=== PATIENT | female | born 1995 | race Caucasian/White ===

== ENCOUNTER 2016-10-10 16:07 | Emergency (ER) | payer OTHER ==
[~2016-10-10] VITALS: Ht 157.5 cm; Wt 52.3 kg
[2016-10-10 16:43] VITALS: TEMP 36.9; Ht 157.5 cm; Wt 52.3 kg
[2016-10-10] MEDS ORDERED: WLLXL/300 PO (16:50)
--- NOTE | 2016-10-10 17:17 | EMERGENCY ROOM VISIT NOTE ---
ED Visit Note First contact with patient: 17:00 CHIEF COMPLAINT: Head injury HISTORY OF PRESENT ILLNESS: This 21-year-old female patient presented to the emergency department ambulatory after receiving a head injury yesterday when she slipped on the ice and fell onto her left side. She states that she injured her right thumb. She states that she struck the left side of her head. There was no brief loss of consciousness or vomiting. No difficulty with speech. The headache has been mild. The patient complains of no neck pain. No loss of appetite or unusual behavior since the injury. The patient has taken nothing for the pain. The patient rates the pain as mild 5/10 and mild. The patient denies any changes in their vision or hearing. The patient denies bowel or bladder dysfunction. The patient denies abdominal pain. The patient reports pain in the right thumb at the base of the thumb. She reports pain with movement. REVIEW OF SYSTEMS: A 6 system review of systems was completed with positives and pertinent negatives listed in the HPI. ALLERGIES: No known allergies MEDICATIONS: Patient denies PMH: Patient denies SOCIAL HISTORY: The patient is a student PHYSICAL EXAM: Vital Signs: Reviewed Nurse's notes, vital signs stable. GENERAL : This is a 21-year-old female, in no acute distress, well-developed, well- nourished. NEURO: The patient is alert, oriented to person place and time, and coherent. Normal mini mental status exam. HEAD: Normocephalic and atraumatic. EYES: Pupils are equal round and reactive to light and accommodation. EOMs are full and optic discs and fundi are normal. There is no swelling or discoloration of the tissue surrounding the eyes. EARS: External auditory canals clear without blood. NOSE: Patent without tenderness. No septal hematoma. FACE: No facial tenderness. NECK: Supple. There is no cervical spine tenderness. The patient does not have tenderness with movement of the neck. MUSCULOSKELETAL: There is tenderness to palpation to the base of the right thumb at the first MCP. There is no obvious deformity. There is mild edema. ED COURSE: I examined the patient. The patient slipped on the ice yesterday and fell, striking the left side of her head. She has a mild headache but no other symptoms related to the head injury. She does not have any nausea, vomiting, blurry vision, fatigue, trouble focusing. I do not suspect concussion , intracranial bleeding or skull fracture. I discussed the risks, benefits and alternatives of CT imaging with the patient. The risks of radiation from CT imaging may outweigh the benefits. The patient is in agreement with this and elects to defer a CT scan at this time. The patient also injured her right hand. An x-ray was obtained and was negative for obvious fracture. She could have a ligamentous injury. She was placed in a removable thumb spica splint by the emergency department nurse and the position was satisfactory. Neurovascular status was intact. She was given the information for the concussion clinic. She should also contact orthopedics for a follow-up appointment for further evaluation and management. She should return with any worsening symptoms. The patient was discharged home in good condition ambulatory. GCS 15 DISCHARGE INSTRUCTIONS: Wear the splint over the next 5-7 days. Contact orthopedics to schedule a follow-up appointment for further evaluation and management of the thumb as it is not improving. Contact the concussion clinic at [facility] ([phone]) to schedule a follow-up appointment for further evaluation and management. Their office is located at [address] [place] [address]. [address] No gym or athletics for one week after symptoms resolve ] RIGHT HAND 3 VIEWS HISTORY: fall, right hand pain Right COMPARISON: None. FINDINGS: There is no fracture or dislocation. Soft tissues are unremarkable. No radiopaque foreign bodies. IMPRESSION: No fractures. Problem List Medical Problems: (1) Asthma Status: Chronic Surgical Problems: (1) [place] teeth removed Status: Resolved Current/Historical Medications Scheduled Control Pills ( Control Pills), 1 TAB PO DAILY Bupropion HCl (Bupropion HCl Xl), 300 MG PO DAILY Cetirizine (Zyrtec), 10 MG PO DAILY Fluticasone Propionate (Nasal) (Flonase Allergy Relief), 2 SPRAYS ELVIS DAILY Allergies Coded Allergies: No Known Allergies (Unverified , 02/01/16) Vital Signs Date Time Temp Pulse Resp B/P Pulse Ox O2 Delivery O2 Flow Rate FiO2 10/10/16 18:13 75 18 107/74 97 Room Air 10/10/16 16:43 36.9 95 20 110/73 95 Room Air Departure Information Impression Primary Impression: Closed head injury Additional Impression: Thumb sprain Dispostion Home / Self-Care Condition GOOD Referrals No Doctor, Assigned (PCP) Gaurav Mckeon M.D. Patient Instructions ED Sprain Finger, [facility] Additional Instructions Wear the splint over the next 5-7 days. Contact orthopedics to schedule a follow-up appointment for further evaluation and management of the thumb as it is not improving. Contact the concussion clinic at [facility] medicine ([phone]) to schedule a follow-up appointment for further evaluation and management. Their office is located at [address] [place] [address]. [address] No gym or athletics for one week after symptoms resolve Problem Qualifiers Primary Impression: Closed head injury Encounter type: initial encounter Qualified Codes: S09.90XA - Unspecified injury of head, initial encounter Additional Impression: Thumb sprain Encounter type: initial encounter Sprain of finger site: metacarpophalangeal joint Laterality: right Qualified Codes: S63.641A - Sprain of metacarpophalangeal joint of right thumb, initial encounter
--- NOTE | 2016-10-10 18:05 | DIAGNOSTIC IMAGING REPORT ---
RIGHT HAND 3 VIEWS HISTORY: fall, right hand pain Right COMPARISON: None. FINDINGS: There is no fracture or dislocation. Soft tissues are unremarkable. No radiopaque foreign bodies. IMPRESSION: No fractures. Electronically signed by: Sam Maldonado M.D. 10/10/2016 6:04 PM Dictated Date/Time: 10/10/2016 6:03 PM
[2016-10-10 18:13] VITALS: BP 107/74; PULSE 75; O2SAT 97
[2016-10-10] MEDS ORDERED: BCPILLS PO (20:27)
[2016-10-10] MEDS ORDERED: FLUT0.15 NAE (20:27)
[2016-10-10] MEDS ORDERED: CETI10TA84 PO (20:27)
== END 2016-10-10 18:26 | disposition home or self-care (01) ==
LOC: C.EDB 16:08 → C.EDD 18:26
DX: S09.90XA Unspecified injury of head, initial encounter (principal); S63.641A Sprain of metacarpophalangeal joint of right thumb, initial encounter; J45.909 Unspecified asthma, uncomplicated; Z79.899 Other long term (current) drug therapy; W00.9XXA Unspecified fall due to ice and snow, initial encounter; Y99.8 Other external cause status